=== PATIENT | male | born 1950 ===

== ENCOUNTER 2023-04-11 11:00 | Inpatient (IN) | payer OTHER ==
[~2023-04-11] VITALS: Ht 157.5 cm; Wt 56.7 kg
[2023-04-11 12:18] LABS: HEMATOCRIT 44.4 % (39.0-48.0); HEMOGLOBIN 14.8 g/dL (13-16.00); MEAN CELL VOLUME 88.8 fL (80.0-100.00); MEAN CORPUSCULAR HEMOGLOBIN 29.7 pg (27.00-32.0); MEAN CORPUSCULAR HGB CONC 33.5 g/dl (32.0-36.0); PLATELET COUNT 212 K/uL (150-450); RED BLOOD COUNT 4.99 M/uL (4.00-6.00); RED CELL DISTRIBUTION WIDTH 13.4 % (11.5-14.5)
[2023-04-11 12:36] LABS: PH,URINE 6.5 (5.0-8.0); URINE APPEARANCE Cloudy; URINE BILIRRUBIN Negative (NEGATIVE); URINE BLOOD Large; URINE COLOR Yellow; URINE GLUCOSE Negative (NEGATIVE); URINE LEUKOCYTE Trace; URINE NITRATE Negative; URINE UROBILINOGEN 0.2 E.U./dl
[2023-04-11 12:39] LABS: INR < 0.93; PARTIAL THROMBOPLASTIN TIME 27.4 SECONDS (22.0-34.0); PROTHROMBIN TIME 9.7 SECONDS (9.0-11.5)
[2023-04-11 12:39] LABS: URINE BACTERIA 11.3 uL (0.0-1933); URINE EPITHELIAL CELLS 4.1 uL (0.0-38.8); URINE RBC 1679.7 uL (0.0-20.8)
[2023-04-11 12:42] LABS: CALCIUM 9.5 mg/dL (8.5-10.1); CREATININE SERUM 0.93 mg/dL (0.70-1.30); GFR 80.32; POTASSIUM 4.25 mEq/L (3.5-5.1)
[2023-04-11 12:52] LABS: URINE PROTEIN 300 (NEGATIVE)
[2023-04-11] MEDS ORDERED: FINASTERIDE5 MG (14:32)
[2023-04-11] MEDS ORDERED: ZESTORETIC 10-1 EACH (14:32)
[2023-04-11] MEDS ORDERED: TAMS0.4C (14:32)
[2023-04-18 06:52] LABS: HEMATOCRIT 38.8 % (39.0-48.0); HEMOGLOBIN 12.7 g/dL (13-16.00); MEAN CELL VOLUME 87.3 fL (80.0-100.00); MEAN CORPUSCULAR HEMOGLOBIN 28.7 pg (27.00-32.0); MEAN CORPUSCULAR HGB CONC 32.8 g/dl (32.0-36.0); PLATELET COUNT 227 K/uL (150-450); RED BLOOD COUNT 4.44 M/uL (4.00-6.00); RED CELL DISTRIBUTION WIDTH 13.1 % (11.5-14.5)
[2023-04-18 07:25] LABS: ALBUMIN 2.3 gm/dL (3.4-5.0); CALCIUM 8.4 mg/dL (8.5-10.1); CREATININE SERUM 1.11 mg/dL (0.70-1.30); GFR 65.49; PHOSPHOROUS 3.4 mg/dL (2.5-4.9)
== END 2023-04-18 13:26 | disposition home or self-care (01) | DRG 708 ==
LOC: SURG 04-17 05:30 → O/R 04-17 05:30 → SURG 04-17 07:00
PROVIDERS: ADMIT Urology; ATTEND Urology
PROC: 8E0W0CZ Robotic Assisted Procedure of Trunk Region, Open Approach (ICD-10-PCS; 2023-04-17)
PROC: 0VT00ZZ Resection of Prostate, Open Approach (ICD-10-PCS; principal; 2023-04-17 07:00)
DX: N40.1 Benign prostatic hyperplasia with lower urinary tract symptoms (principal); Z20.822 Contact with and (suspected) exposure to COVID-19
CPT/HCPCS: 55867; S2900